=== PATIENT | female | born 1995 | race Two or more races ===

== ENCOUNTER 2018-09-25 00:17 | Inpatient (IN) | payer BC, SELFPAY ==
[2018-09-25 01:00] VITALS: BMI 37.6
[2018-09-25] MEDS ORDERED: Lidocaine 1% (PF) 30 ML VIAL SC PRN (01:35)
[2018-09-25] MEDS ORDERED: Acetaminophen 500 MG TAB PO PRN (01:35)
[2018-09-25] MEDS ORDERED: Zolpidem Tartrate 5 MG TAB PO PRN (01:35)
[2018-09-25] MEDS ORDERED: Meperidine HCl/PF 25 MG/ML VIAL IM/IV PRN (01:35)
[2018-09-25] MEDS ORDERED: Misoprostol 200 MCG TAB PR PRN (01:35)
[2018-09-25] MEDS ORDERED: Promethazine HCl 25 MG/ML VIAL IM PRN (01:35)
[2018-09-25] MEDS ORDERED: Ondansetron PF 4 MG/2 ML Vial IVP PRN (01:35)
[2018-09-25] MEDS ORDERED: NS / Oxytocin 40 units/1000ml 1,000 ML IV PRN (01:35)
[2018-09-25] MEDS ORDERED: HYDROcodone/Acetaminophen 5/325 mg Tablet PO PRN ×2 (01:35)
[2018-09-25] MEDS ORDERED: Butorphanol Tartrate 1 MG/ML VIAL SLOW IVP PRN (01:35)
[2018-09-25] MEDS ORDERED: Ibuprofen 800 MG TAB PO PRN (01:35)
[2018-09-25] MEDS ORDERED: Methylergonovine 0.2 MG/ML VIAL IM PRN (01:35)
[2018-09-25] MEDS ORDERED: Lactated Ringer's 1,000 ML IV SCH ×2 (01:45)
[2018-09-25] MEDS ORDERED: NS w/ Oxytocin 10 units 500 ML IV SCH (01:45)
--- NOTE | 2018-09-25 01:46 | PDOC.LDHP ---
Labor and Delivery H&P Chief complaint: contractions HPI: 22 yo BF here c/o UCs since last PM. Denies SROM or bleeding. Current gestational age (weeks): 37 Due date: 10/14/18 Dating criteria: first trimester ultrasound Grav: 2 Para: 1 OB History Details: Early PNC with Dr. Shepherd then switched to Dr. Lacey. H/o prev. C/S, dispo is for . Current complications: none Abnormal US findings: No Past Medical History: none Current medications: pre- vitamins Previous surgical history: low tranverse CS Allergies/Adverse Reactions: Allergies Allergy/AdvReac Type Severity Reaction Status Date / Time No Known Allergies Allergy Verified 09/25/18 00:54 Social history: none - Physical Exam Vital signs reviewed and normal: yes General: resting Heart: RRR Lungs: nonlabored breathing Abdomen: gravid Extremeties: trace edema FHT: category 1 [place] contractions every: UCs q 2-3 mins. - Vaginal Exam cm dilated: 3 Effacement: 50% Station: -2 - OB Labs Blood type: unknown RH: unknown Antibody Screen: unknown GBS: negative - Assessment L&D Assessment: term patient in labor (prev. C/S planned to ) - Plan Plan: admit to L&D, labor augmentation if indicated (Dr. Lacey notified.)
[2018-09-25 02:34] LABS: Hemoglobin 10.6 g/dL (12.0-16.0); Mean Corpuscular Hemoglobin 28.6 pg (27.0-31.0); Mean Corpuscular Volume 84.1 fL (78.0-98.0); Mean Platelet Volume 6.7 fL (7.4-10.4); Platelet Count 262 thou/uL (130-400); RBC Distribution Width 12.4 % (11.5-14.5); Red Blood Cell (RBC) Count 3.71 mill/uL (4.20-5.40); White Blood Cell (WBC) Count 6.7 thou/uL (4.8-10.8)
[2018-09-25 03:42] LABS: HBSAg Index 0.25 S/CO (0-0.99); Hep B Surf Ag Non-Reactive S/CO (NonReactive)
[2018-09-25 07:26] LABS: Syphilis Antibody Nonreactive (Nonreactive); Syphilis Antibody Index 0.05 S/CO (<1.00 Non-Reactive)
--- NOTE | 2018-09-25 19:37 | PDOC.LDPN ---
Labor & Delivery Progress Note - Subjective Subjective: comfortable - Objective Vital signs reviewed and normal: yes (Patient was admittd with contractions cook dessert today. She was observed all day for active labor, and desires TOLAC. However, her contractions have gradually subsided, and cervix has regressed to 3/50/--3 and no real change can be documented per my exam tonight. Patient is comfortable, feels no further contractions at all at this time, and would liek to go home. She also agrees all labor symptoms have now resolved. No vaginal bleeding was noted on my exam. heart tones are catagory 1. F/U scheduled next week in my office.) General: NAD, resting Uterine fundus: non tender Dilation: 3 Effacement: 50% Station: -3 FHT: category 1
== END 2018-09-25 19:40 | disposition home health service (06) | DRG 833 ==
LOC: L&D/OP 00:17 → L&D 01:50
PROVIDERS: ADMIT Obstetrics & Gynecology; ATTEND Obstetrics & Gynecology
DX: O47.1 False labor at or after 37 completed weeks of gestation (principal); Z3A.37 37 weeks gestation of pregnancy
CPT/HCPCS: 36415; 76815; 85027; 86780; 86850; 86900; 86901; 87340; 99285

== ENCOUNTER 2018-10-02 05:30 | Inpatient (IN) | payer BC ==
[~2018-10-02 05:30] MED LIST: Carboprost 250 MCG/ML AMP IM PRN; Diphenoxylate HCl/Atropine Tablet PO PRN; Docusate 100 MG CAP PO PRN; HYDROcodone/Acetaminophen 5/325 mg Tablet PO PRN; Ibuprofen 800 MG TAB PO PRN; Lidocaine 1% (PF) 30 ML VIAL SC PRN; Methylergonovine 0.2 MG/ML VIAL IM PRN; Misoprostol 200 MCG TAB PR PRN; NS / Oxytocin 40 units/1000ml 1,000 ML IV PRN; Ondansetron PF 4 MG/2 ML Vial IVP PRN; Promethazine HCl 25 MG/ML VIAL IM PRN
[2018-10-02] MEDS: Lactated Ringer's 1,000 ML IV SCH ×2 (07:55→15:43)
[2018-10-02 08:02] VITALS: BMI 38.2
[2018-10-02 08:44] LABS: Hemoglobin 9.8 g/dL (12.0-16.0); Mean Corpuscular HGB CONC 33.5 g/dL (32.0-36.0); Mean Corpuscular Hemoglobin 27.6 pg (27.0-31.0); Mean Corpuscular Volume 82.4 fL (78.0-98.0); Mean Platelet Volume 6.4 fL (7.4-10.4); Platelet Count 257 thou/uL (130-400); RBC Distribution Width 12.4 % (11.5-14.5); Red Blood Cell (RBC) Count 3.55 mill/uL (4.20-5.40); White Blood Cell (WBC) Count 6.3 thou/uL (4.8-10.8)
[2018-10-02 09:33] LABS: HBSAg Index 0.22 S/CO (0-0.99); Hep B Surf Ag Non-Reactive S/CO (NonReactive)
[2018-10-02 09:34] LABS: Syphilis Antibody Nonreactive (Nonreactive); Syphilis Antibody Index 0.05 S/CO (<1.00 Non-Reactive)
--- NOTE | 2018-10-02 10:14 | PDOC.EVN ---
Event Note - Event Note Event Note: Asked to AROM by Dr. Lacey. Pt. comfortable. SVE= /-1, vtx. FHTs stable. No significant UCs seen. AROM- small amt. of clear fluid seen.
[2018-10-02] MEDS ORDERED: NS w/ Oxytocin 10 units 500 ML ONE (15:18)
[2018-10-02] MEDS ORDERED: NS w/ Oxytocin 10 units 500 ML IVPB SCH (16:45)
[2018-10-02] MEDS ORDERED: Lidocaine 1% (PF) 30 ML VIAL SC PRN (17:39)
[2018-10-02] MEDS ORDERED: NS / Oxytocin 40 units/1000ml 1,000 ML IV PRN (17:39)
[2018-10-02] MEDS ORDERED: NS w/ Oxytocin 10 units 500 ML IV SCH ×2 (17:45)
[2018-10-02] MEDS ORDERED: Butorphanol Tartrate 1 MG/ML VIAL SLOW IVP PRN (20:04)
[2018-10-02] MEDS ORDERED: Fentanyl 4 mcg/Bup 0.1% Cadd 100 ML ONE (21:50)
[2018-10-02] MEDS ORDERED: Naloxone HCl 0.4 mg/ml Vial IVP PRN ×2 (23:02)
[2018-10-02] MEDS ORDERED: Acetaminophen 325 MG TAB PO PRN (23:02)
[2018-10-02] MEDS ORDERED: Lactated Ringer's 500 ML IV PRN (23:02)
[2018-10-02] MEDS ORDERED: Ondansetron PF 4 MG/2 ML Vial IVP PRN (23:02)
[2018-10-02] MEDS ORDERED: Promethazine HCl 25 MG/ML VIAL IM PRN (23:02)
[2018-10-02] MEDS ORDERED: diphenhydrAMINE 50 MG/ML VIAL IVP PRN (23:02)
[2018-10-02] MEDS ORDERED: Hydrocerin (Eucerin) Cream 120 gm Jar TOP PRN (23:02)
[2018-10-02] MEDS ORDERED: ePHEDrine/0.9% NaCl/PF SYRINGE 50 mg/10 ml SLOW IVP PRN (23:02)
[2018-10-02] MEDS ORDERED: Communication Order-Pharmacy FS SCH (23:15)
[2018-10-02] MEDS ORDERED: Fentanyl 4 mcg/Bupivacaine 0.1% Cassette 100 ML EPIDURAL SCH (23:15)
[2018-10-03] MEDS: CEFAZOLIN 2 GM/50 ML BAG IVPB SCH ×2 (02:00→15:58)
[2018-10-03] MEDS ORDERED: NS / Oxytocin 40 units/1000ml 1,000 ML ONE ×2 (05:33→07:53)
[2018-10-03] MEDS ORDERED: Lidocaine 1% (PF) 30 ML VIAL ONE (05:33)
[2018-10-03] MEDS ORDERED: Fentanyl 4 mcg/Bup 0.1% Cadd 100 ML ONE (07:14)
[2018-10-03] MEDS ORDERED: Misoprostol 200 MCG TAB ONE (07:52)
[2018-10-03] MEDS ORDERED: Carboprost 250 MCG/ML AMP ONE (07:53)
[2018-10-03] MEDS ORDERED: Methylergonovine 0.2 MG/ML VIAL ONE (07:53)
[2018-10-03] MEDS ORDERED: Bupivacaine HCl 0.25%/Epi 0.0005/PF 10 ML VIAL FS ONE (11:11)
[2018-10-03] MEDS ORDERED: Misoprostol 200 MCG TAB VAG PRN (11:46)
[2018-10-03] MEDS ORDERED: diphenhydrAMINE 25 MG CAP PO PRN (11:46)
[2018-10-03] MEDS ORDERED: HYDROcodone/Acetaminophen 5/325 mg Tablet PO PRN (11:46)
[2018-10-03] MEDS ORDERED: NS / Oxytocin 40 units/1000ml 1,000 ML IV SCH (11:46)
[2018-10-03] MEDS ORDERED: Promethazine HCl 25 MG/ML VIAL IM PRN (11:46)
[2018-10-03] MEDS ORDERED: Bisacodyl 10 MG SUPP PR PRN (11:46)
[2018-10-03] MEDS ORDERED: Benzocaine/Menthol 20-0.5% 60 ML CAN TOP PRN (11:46)
[2018-10-03] MEDS ORDERED: Milk Of Magnesia 30 ML UDCUP PO PRN (11:46)
[2018-10-03] MEDS ORDERED: Zolpidem Tartrate 5 MG TAB PO PRN (11:46)
[2018-10-03] MEDS ORDERED: Preparation H Ointment 28 GM TUBE PR PRN (11:46)
[2018-10-03] MEDS ORDERED: Ondansetron PF 4 MG/2 ML Vial IVP PRN (11:46)
[2018-10-03] MEDS ORDERED: Lanolin Ointment 7 GM TUBE TOP PRN (11:46)
[2018-10-03] MEDS: Ibuprofen 800 MG TAB PO SCH ×2 (15:57→21:56)
[2018-10-03] MEDS: Lactated Ringer's 1,000 ML IV SCH ×2 (15:57→15:58)
[2018-10-03] MEDS: Ferrous Sulfate 325 MG TAB PO SCH (17:03)
--- NOTE | 2018-10-03 18:37 | PDOC.LDHP ---
Labor and Delivery H&P Chief complaint: scheduled induction, other (Oligohydrmanios on Ultrasound, TOLAC desired.) Due date: 10/14/18 Grav: 2 Para: 1 Current complications: oligohydramnios, other Abnormal US findings: Yes Current medications: pre-[place] vitamins Previous surgical history: low tranverse CS Allergies/Adverse Reactions: Allergies Allergy/AdvReac Type Severity Reaction Status Date / Time No Known Allergies Allergy Verified 10/02/18 07:44 Social history: none - Physical Exam Vital signs reviewed and normal: yes General: NAD, resting Heart: RRR Lungs: nonlabored breathing Abdomen: NTTP Extremeties: no edema FHT: category 1 - Vaginal Exam cm dilated: 3 - Assessment L&D Assessment: medically indicated induction - Plan Plan: admit to L&D, labor augmentation if indicated, other (TOLAC Desired.)
[2018-10-03] MEDS: Docusate Calcium (SURFAK) 240 MG CAP PO SCH (21:56)
[2018-10-04] MEDS: HYDROcodone/Acetaminophen 5/325 mg Tablet PO PRN ×3 (00:54→20:21)
[2018-10-04] MEDS: Ibuprofen 800 MG TAB PO SCH ×3 (05:20→21:44)
--- NOTE | 2018-10-04 06:05 | PDOC.PP ---
Post Progress Note Post Day #: 1 Subjective: Doing well, desires DSCH today PO intake tolerated: yes Flatus: yes Ambulation: yes Vital Signs (12 hours) Temp Pulse Resp BP Pulse Ox 10/04/18 00:00 98.0 F 74 18 100/55 L 10/03/18 20:00 97.7 F 76 20 101/55 L 99 Weight Weight 209 lb - Physical Examination General: NAD Cardiovascular: no m/r/g Respiratory: clear to auscultation bilaterally Abdominal: + bowel sounds, lochia, no distention, appropriately TTP Extremities: negative homans (B) Neurological: no gross focal deficits Psychiatric: A&Ox3, normal affect Result Diagrams: 10/02/18 08:33 Additional Labs: Post Labs Blood Type O POSITIVE 10/02/18 08:33 Hep Bs Antigen Non-Reactive S/CO (NonReactive) 10/02/18 08:33 (1) Vaginal delivery Code(s): O80 - ENCOUNTER FOR FULL-TERM UNCOMPLICATED DELIVERY Status: Acute - Assessment/Plan Multip s/p yesterday at 0845...desires DC tpo gome today F/u in 2-4 weeks Routine PP care OB Summary sheet complete in chart
[2018-10-04 06:48] LABS: Hemoglobin 9.3 g/dL (12.0-16.0); Mean Corpuscular HGB CONC 31.8 g/dL (32.0-36.0); Mean Corpuscular Hemoglobin 27.3 pg (27.0-31.0); Mean Corpuscular Volume 85.9 fL (78.0-98.0); Mean Platelet Volume 6.8 fL (7.4-10.4); Platelet Count 248 thou/uL (130-400); RBC Distribution Width 12.7 % (11.5-14.5); Red Blood Cell (RBC) Count 3.39 mill/uL (4.20-5.40); White Blood Cell (WBC) Count 9.5 thou/uL (4.8-10.8)
[2018-10-04] MEDS ORDERED: Measles/Mumps/Rubella 10 MCG/0.5 ML VIAL SC ONE (09:00)
[2018-10-04] MEDS ORDERED: Varicella virus, LIVE 0.5 ML VIAL SC ONE (09:00)
[2018-10-04] MEDS ORDERED: Adacel (T-DAP) 0.5 ML SYRINGE IM ONE (09:00)
[2018-10-04] MEDS: Prenatal Vitamin 1 TAB PO SCH (09:08)
[2018-10-04] MEDS: Ferrous Sulfate 325 MG TAB PO SCH ×2 (09:09→17:38)
[2018-10-04] MEDS: Docusate Calcium (SURFAK) 240 MG CAP PO SCH ×2 (09:09→20:21)
[2018-10-05] MEDS: HYDROcodone/Acetaminophen 5/325 mg Tablet PO PRN (05:18)
[2018-10-05] MEDS: Ibuprofen 800 MG TAB PO SCH (05:31)
--- NOTE | 2018-10-05 05:53 | PDOC.PP ---
Post Progress Note Post Day #: 2 Subjective: Feeling very well this morning. No new concerns. PO intake tolerated: yes Flatus: yes Ambulation: yes Vital Signs (12 hours) Temp Pulse Resp BP Pulse Ox 10/04/18 20:15 98.3 F 81 18 116/68 97 Weight Weight 94.801 kg - Physical Examination General: NAD Cardiovascular: no m/r/g, RRR Respiratory: clear to auscultation bilaterally, non-labored breathing Abdominal: + bowel sounds, no distention, appropriately TTP Fundus firm & at: umbilicus Extremities: negative homans (B) Neurological: no gross focal deficits Psychiatric: A&Ox3, normal affect Result Diagrams: 10/04/18 06:09 Additional Labs: Post Labs Blood Type O POSITIVE 10/02/18 08:33 Hep Bs Antigen Non-Reactive S/CO (NonReactive) 10/02/18 08:33 (1) Vaginal delivery Code(s): O80 - ENCOUNTER FOR FULL-TERM UNCOMPLICATED DELIVERY Status: Acute - Assessment/Plan 22 yo G2 now P2 PPD #2 from 1. PPD #2 - Meeting all pp milestones - D/C today
[2018-10-05 08:28] VITALS: BP 110/76; TEMP 97.6
[2018-10-05] MEDS: Docusate Calcium (SURFAK) 240 MG CAP PO SCH (10:04)
[2018-10-05] MEDS: Prenatal Vitamin 1 TAB PO SCH (10:04)
[2018-10-05] MEDS: Ferrous Sulfate 325 MG TAB PO SCH (10:04)
== END 2018-10-05 12:14 | disposition home or self-care (01) | DRG 806 ==
LOC: L&D 06:37 → 3SW 10-03 14:56
PROVIDERS: ADMIT Obstetrics & Gynecology; ATTEND Obstetrics & Gynecology
PROC: 10E0XZZ Delivery of Products of Conception, External Approach (ICD-10-PCS; principal; 2018-10-03)
PROC: 10907ZC Drainage of Amniotic Fluid, Therapeutic from Products of Conception, Via Natural or Artificial Opening (ICD-10-PCS; 2018-10-03)
PROC: 3E033VJ Introduction of Other Hormone into Peripheral Vein, Percutaneous Approach (ICD-10-PCS; 2018-10-03)
PROC: 0UQGXZZ Repair Vagina, External Approach (ICD-10-PCS; 2018-10-03)
DX: O41.03X0 Oligohydramnios, third trimester, not applicable or unspecified (principal); O71.4 Obstetric high vaginal laceration alone; Z37.0 Single live birth; Z3A.38 38 weeks gestation of pregnancy; O34.219 Maternal care for unspecified type scar from previous cesarean delivery
CPT/HCPCS: 36415; 51702; 85027; 86780; 86850; 86900; 86901; 87340; J0595; J2001; J2210; J2405; J3490